=== PATIENT | female | born 1980 | race Caucasian/White ===

== ENCOUNTER 2018-10-09 16:12 | Emergency (ER) | payer OTHER ==
[~2018-10-09] VITALS: Ht 167.6 cm; Wt 127.0 kg
--- NOTE | 2018-10-09 16:45 | ED Cough/URI ---
General Chief Complaint: Fever-Adult/Adol Stated Complaint: FEVER,CHILLS,COUGH,ACHE Source: patient Exam Limitations: no limitations History of Present Illness Date Seen by Provider: Oct 09, 2018 Time Seen by Provider: 16:44 Initial Comments 38-year-old female who presents to the emergency room with complaints of fever, chills, cough and body aches for the past 3 days. She reports that she lives with 2 other people and they are both tested positive for the flu. She reports that she was not able to go to work today due to feeling so poorly and needs a work note. Timing/Duration: other (3) Associated Symptoms: cough, fever/chills, muscle aches Allergies and Home Medications Patient Home Medication List Home Medication List Reviewed: Yes Review of Systems Review of Systems Constitutional: see HPI, chills, fever Respiratory: see HPI, cough All Other Systems Reviewed Negative Unless Noted: Yes Past Kiflnbh-Xltzov-Hwscna Hx Past Med/Social Hx: Reviewed Nursing Past Med/Soc Hx Patient Social History Recent Foreign Travel: No Contact w/Someone Who Travel: No Family Medical History Reviewed Nursing Family Hx Physical Exam Vital Signs - First Documented 10/09/18 10/09/18 16:41 17:19 Temp 98.7 Pulse 90 Resp 18 B/P (MAP) 143/90 (107) Pulse Ox 98 Capillary Refill : Height: '" Weight: lbs. oz. kg; BMI Method: General Appearance: WD/WN, no apparent distress HEENT: PERRL/EOMI, normal ENT inspection, TMs normal, pharynx normal Neck: non-tender, full range of motion, supple, normal inspection, carotid bruit Respiratory: chest non-tender, lungs clear, normal breath sounds, no respiratory distress, no accessory muscle use, respiratory distress Cardiovascular: normal peripheral pulses, regular rate, rhythm, no edema, no gallop, no JVD, no murmur Extremities: normal capillary refill Neurologic/Psychiatric: alert, normal mood/affect, oriented x 3 Skin: normal color, warm/dry Progress/Results/Core Measures Suspected Sepsis SIRS Temperature: Pulse: Respiratory Rate: Blood Pressure / Mean: Results/Orders Micro Results Microbiology 10/09/18 Influenza Types A,B Antigen (BOUBACAR) - Final, Complete My Orders Orders - RAVINDRA RAMIREZ Influenza A And B Antigens (10/09/18 16:19) Vital Signs/I&O 3/4/19 3/4/19 16:41 17:19 Temp 98.7 98.7 Pulse 90 90 Resp 18 18 B/P (MAP) 143/90 (107) 140/90 (107) Pulse Ox 98 Capillary Refill : Departure Impression Primary Impression: Influenza-like symptoms Disposition: HOME, SELF-CARE Condition: Stable/Unchanged Departure-Patient Inst. Decision time for Depature: 17:12 Referrals: NO,LOCAL PHYSICIAN (PCP) Primary Care Physician Patient Instructions: Cough, Runny Nose, and the Common Cold (DC) Add. Discharge Instructions: You may use [id number] cold cough and flu medications as directed by the bottle. Drink lots of clear liquids to stay hydrated. Tylenol and Motrin as directed by the bottle for pain and fever relief. Be sure not to exceed your daily limit of Tylenol (4000 mg). Return back to the emergency room for worsening symptoms or concerns as needed. Follow-up with primary care provider as needed. All discharge instructions reviewed with patient and/or family. Voiced understanding. RAVINDRA RAMIREZ Oct 09, 2018 16:45
[2018-10-09 17:19] VITALS: BP 140/90
== END 2018-10-09 17:22 | disposition home or self-care (01) ==
LOC: ER 16:14
DX: R50.9 Fever, unspecified (principal); R05 Cough; R52 Pain, unspecified
CPT/HCPCS: 87804